=== PATIENT | female | born 1980 | race Two or more races ===

== ENCOUNTER 2018-08-23 16:56 | Emergency (ER) | payer MEDICAID, OTHER ==
[~2018-08-23] VITALS: Ht 154.9 cm; Wt 64.7 kg
[~2018-08-23 16:56] MED LIST: DOCU-131 PO; HYDR-3240 PO; IBUP-1222 PO; PNV91TAB3 PO
[2018-08-23] MEDS ORDERED: ONDANSETRON ODT 4 MG PO ONE (17:30)
[2018-08-23 17:33] LABS: BASOPHILS # (AUTO) 0.05 x10^3/uL (0-0.1); BASOPHILS % (AUTO) 1 % (0-1); EOSINOPHILS # (AUTO) 0.03 x10^3/uL (0-0.4); EOSINOPHILS % (AUTO) 0 % (1-7); LYMPHOCYTES # (AUTO) 2.51 x10^3/uL (1-3.4); LYMPHOCYTES % (AUTO) 29 % (22-44); MD NO; MEAN CORPUSCULAR HEMOGLOBIN 29.8 pg (27.0-34.8); MEAN CORPUSCULAR HGB CONC 34.1 g/dL (32.4-35.8); MEAN CORPUSCULAR VOLUME 87.3 fL (80-100); MEAN PLATELET VOLUME 11.3 fL (7.4-10.4); MONOCYTES # (AUTO) 0.52 x10^3/uL (0.2-0.8); MONOCYTES % (AUTO) 6 % (2-9); NEUTROPHILS # (AUTO) 5.64 x10^3/uL (1.8-6.8); NEUTROPHILS % (AUTO) 65 % (42-75); PLATELET COUNT 196 x10^3/uL (130-400)
[2018-08-23 17:41] LABS: ALANINE AMINOTRANSFERASE 22 U/L (12-78); ALBUMIN 3.7 g/dL (3.4-5.0); ANION GAP 6 mmol/L (5-15); CALCIUM 8.2 mg/dL (8.5-10.1); CHLORIDE 107 mmol/L (98-107); CREATININE 0.54 mg/dL (0.55-1.02)
[2018-08-23 17:58] LABS: ALKALINE PHOSPHATASE 83 U/L (45-117); BILIRUBIN,TOTAL 0.2 mg/dL (0.2-1.0); TOTAL PROTEIN 7.8 g/dL (6.4-8.2)
--- NOTE | 2018-08-23 18:09 | NUR ---
PT. IS A & O X 4 WITH C/O 3 WEEKS OF LOWER ABD. PAIN. PT. STATES SHE IS 9 WEEKS . PT.'S ABD. IS SOFT AND ROUND WITH BS + x 4 QUADS. PT. WAS TAKEN TO ULTRA SOUND.
[2018-08-23] MEDS ORDERED: ONDANSETRON ODT 4 MG ONE (18:31)
[2018-08-23 18:49] LABS: MICROSCOPIC NOT IND
[2018-08-23 18:54] LABS: CULTURE INDICATED? NO
--- NOTE | 2018-08-23 19:15 | NUR ---
PT RESTING CALMY ON GURNEY, MONITORS IN PLACE, CALL LIGHT WITHIN REACH, AWAITING URINE RESULT
[2018-08-23 19:34] VITALS: BP 106/69
== END 2018-08-23 19:46 | disposition home or self-care (01) ==
LOC: ED 18:19
DX: O21.9 Vomiting of pregnancy, unspecified (principal); G56.03 Carpal tunnel syndrome, bilateral upper limbs; Z3A.01 Less than 8 weeks gestation of pregnancy
CPT/HCPCS: 36415; 76801; 80053; 81003; 84702; 85025; 99284; Q0162